=== PATIENT | male | born 1990 | race American Indian/Alaskan Native ===

== ENCOUNTER 2018-07-19 12:30 | Emergency (ER) | payer SELFPAY ==
[2018-07-19 12:50] VITALS: BP 121/79
[2018-07-19] MEDS ORDERED: NORCO 5/325 PO ONE (15:01)
--- NOTE | 2018-07-19 15:06 | Emergency Department Report ---
ED ENT HPI - General Chief complaint: Dental/Oral Stated complaint: R SIDE OF FACE HENDERSON/SWOLLEN/TOOTHACHE Source: patient Mode of arrival: Ambulatory Limitations: No Limitations - History of Present Illness Initial comments: This is a 28-year-old -[place] male presents to the emergency room for right-sided facial swelling and abscess for 2 days. Patient states he went to [facility] and Over tooth #31 one month ago. He has a follow-up in a few weeks. He reports discomfort with chewing. He noticed swelling to right side of face yesterday. He denies drooling, hoarsness, fever, difficulty swallowing. MD complaint: tooth pain Onset/Timin -: days(s) Location: tooth # (32) Severity: severe Severity scale (0 -10): 10 Quality: aching Consistency: constant Improves with: none Worsens with: eating Context- Dental: history of dental caries Associated Symptoms: gum swelling, toothache - Related Data Previous Rx's Medication Instructions Recorded Last Taken Type Amoxicillin/Potassium Clav 1 each PO BID #14 tablet 07/19/18 Unknown Rx [Augmentin 500-125 Tablet] Naproxen [Naprosyn] 500 mg PO BID PRN #20 tablet 07/19/18 Unknown Rx traMADol [Ultram 50 MG tab] 50 mg PO Q6HR PRN #12 tablet 07/19/18 Unknown Rx Allergies Allergy/AdvReac Type Severity Reaction Status Date / Time No Known Allergies Allergy Unverified 07/19/18 12:31 ED Dental HPI - General Chief complaint: Dental/Oral Stated complaint: R SIDE OF FACE HENDERSON/SWOLLEN/TOOTHACHE Source: patient Mode of arrival: Ambulatory Limitations: No Limitations - Related Data Previous Rx's Medication Instructions Recorded Last Taken Type Amoxicillin/Potassium Clav 1 each PO BID #14 tablet 07/19/18 Unknown Rx [Augmentin 500-125 Tablet] Naproxen [Naprosyn] 500 mg PO BID PRN #20 tablet 07/19/18 Unknown Rx traMADol [Ultram 50 MG tab] 50 mg PO Q6HR PRN #12 tablet 07/19/18 Unknown Rx Allergies Allergy/AdvReac Type Severity Reaction Status Date / Time No Known Allergies Allergy Unverified 07/19/18 12:31 ED Review of Systems ROS: Stated complaint: R SIDE OF FACE HENDERSON/SWOLLEN/TOOTHACHE Other details as noted in HPI Constitutional: denies: chills, fever ENT: dental pain. denies: ear pain, throat pain Respiratory: denies: cough, shortness of breath, wheezing Cardiovascular: denies: chest pain, palpitations Gastrointestinal: denies: abdominal pain, nausea, diarrhea Skin: denies: rash, lesions Neurological: denies: headache, weakness, paresthesias Psychiatric: denies: anxiety, depression ED Past Medical Hx - Past Medical History Previous Medical History?: No - Surgical History Past Surgical History?: No - Social History Smoking Status: Never Smoker Substance Use Type: None - Medications Home Medications: Home Medications Medication Instructions Recorded Confirmed Last Taken Type Amoxicillin/Potassium Clav 1 each PO BID #14 tablet 07/19/18 Unknown Rx [Augmentin 500-125 Tablet] Naproxen [Naprosyn] 500 mg PO BID PRN #20 tablet 07/19/18 Unknown Rx traMADol [Ultram 50 MG tab] 50 mg PO Q6HR PRN #12 tablet 07/19/18 Unknown Rx ED Physical Exam - General Limitations: No Limitations General appearance: alert, in no apparent distress - ENT ENT exam: Present: normal orophraynx (uvula midline), mucous membranes moist, TM's normal bilaterally, normal external ear exam, other (mucosal swelling around #31, tenderness, orange filling center tooth, no palapable cyst pockets) - Neck Neck exam: Present: normal inspection - Respiratory Respiratory exam: Present: normal lung sounds bilaterally. Absent: respiratory distress - Cardiovascular Cardiovascular Exam: Present: regular rate, normal rhythm. Absent: systolic murmur, diastolic murmur, rubs, gallop - Neurological Exam Neurological exam: Present: alert, oriented X3 - Psychiatric Psychiatric exam: Present: normal affect, normal mood - Skin Skin exam: Present: warm, dry, intact, normal color. Absent: rash ED Course Vital Signs 07/19/18 12:49 Temperature 98.6 F Pulse Rate 58 L Respiratory 18 Rate Blood Pressure 121/79 O2 Sat by Pulse 98 Oximetry ED Medical Decision Making - Medical Decision Making Patient is stable and was examined by me. Given norco once in ER. Susceptible of dental abscess. Start Augmentin, naproxen, and tramadol. He states he has follow-up with the dentist in [place] in a few weeks. Discussed plan with patient. Discharged home in stable. Referral to dentist for continued care. Critical care attestation.: If time is entered above; I have spent that time in minutes in the direct care of this critically ill patient, excluding procedure time. ED Disposition Clinical Impression: Toothache, Dental caries Disposition: TO HOME OR SELFCARE Is pt being admited?: No Does the pt Need Aspirin: No Condition: Stable Instructions: Toothache (ED), Dental Caries (ED) Additional Instructions: Complete full course of antibiotics as prescribed. Take pain medication every 6-8 hours as needed for pain. Follow-up with the dizziness from the referral's list below. Prescriptions: Amoxicillin/Potassium Clav [Augmentin 500-125 Tablet] 1 each PO BID #14 tablet Naproxen [Naprosyn] 500 mg PO BID PRN #20 tablet PRN Reason: Pain, Moderate (4-6) traMADol [Ultram 50 MG tab] 50 mg PO Q6HR PRN #12 tablet PRN Reason: Pain Referrals: [facility] [Outside] - 3-5 Days [facility] [Outside] - 3-5 Days [facility] [Outside] - 3-5 Days [facility] [Outside] - 3-5 Days Forms: Work/School Release Form(ED) Time of Disposition: 15:08
== END 2018-07-19 15:31 | disposition home or self-care (01) ==
LOC: ED 12:30
DX: K02.9 Dental caries, unspecified (principal)
CPT/HCPCS: 99282